=== PATIENT | female | born 2000 | race Caucasian/White ===

== ENCOUNTER 2019-04-13 11:03 | Emergency (ER) | payer MEDICAID ==
[~2019-04-13] VITALS: Ht 170.2 cm; Wt 85.2 kg
[2019-04-13] MEDS ORDERED: ONDANSETRON ODT 4 MG PO ONE (11:30)
[2019-04-13] MEDS ORDERED: SUMATRIPTAN 6MG/0.5ML SQ ONE ×2 (11:30→11:32)
[2019-04-13] MEDS ORDERED: ONDANSETRON ODT 4 MG ONE (11:33)
[2019-04-13 11:56] LABS: BASOPHILS # (AUTO) 0.01 x10^3/uL (0-0.3); BASOPHILS % (AUTO) 0 % (0-1); EOSINOPHILS # (AUTO) 0.06 x10^3/uL (0-0.8); EOSINOPHILS % (AUTO) 1 % (1-7); LYMPHOCYTES # (AUTO) 1.32 x10^3/uL (1-6.1); LYMPHOCYTES % (AUTO) 23 % (22-44); MD NO; MEAN CORPUSCULAR HEMOGLOBIN 30.9 pg (27.0-34.8); MEAN CORPUSCULAR HGB CONC 33.5 g/dL (32.4-35.8); MEAN CORPUSCULAR VOLUME 92.2 fL (80-100); MEAN PLATELET VOLUME 7.5 fL (7.4-10.4); MONOCYTES # (AUTO) 0.28 x10^3/uL (0-1.4); MONOCYTES % (AUTO) 5 % (2-9); NEUTROPHILS # (AUTO) 4.05 x10^3/uL (1.8-8.0); NEUTROPHILS % (AUTO) 71 % (42-75); PLATELET COUNT 224 x10^3/uL (130-400); RED BLOOD COUNT 4.26 x10^6/uL (3.82-5.3); RED CELL DISTRIBUTION WIDTH 12.6 % (9.6-15.2)
--- NOTE | 2019-04-13 12:01 | NUR ---
pt laying on gurney awake & calm, responds approp to staff, NAD, comfort measures provided, family at BS, call light within reach.
[2019-04-13 12:09] LABS: ALBUMIN 3.7 g/dL (3.4-5.0); ANION GAP 8 mmol/L (5-15); CALCIUM 8.7 mg/dL (8.5-10.1); CHLORIDE 105 mmol/L (98-107)
[2019-04-13 12:14] LABS: CREATININE 0.94 mg/dL (0.55-1.02)
[2019-04-13] MEDS ORDERED: PROCHLORPERAZINE 5 MG/ML, 2ML ONE (12:28)
[2019-04-13] MEDS ORDERED: DIPHENHYDRAMINE 25 MG CAPSULE ONE (12:29)
[2019-04-13] MEDS ORDERED: KETOROLAC 30 MG/1 ML ONE (12:29)
[2019-04-13] MEDS ORDERED: PROCHLORPERAZINE 5 MG/ML, 2ML IM ONE (12:30)
[2019-04-13] MEDS ORDERED: DIPHENHYDRAMINE 25 MG CAPSULE PO ONE (12:30)
[2019-04-13] MEDS ORDERED: KETOROLAC 30 MG/1 ML IM ONE (12:30)
[2019-04-13 13:23] VITALS: BP 136/84
== END 2019-04-13 13:26 | disposition home or self-care (01) ==
LOC: ED 13:20
DX: G43.B0 Ophthalmoplegic migraine, not intractable (principal); G43.109 Migraine with aura, not intractable, without status migrainosus
CPT/HCPCS: 36415; 70450; 80048; 82040; 84703; 85025; 93005; 96372; 99284; J0780; J1885; J3030; Q0162; Q0163